=== PATIENT | male | born 1955 | race Caucasian/White ===

== ENCOUNTER 2017-05-04 18:39 | Emergency (ER) | payer BC ==
[~2017-05-04] VITALS: Ht 180.3 cm; Wt 103.1 kg
[2017-05-04 19:16] LABS: HEMATOCRIT 38.6 % (38.0-50.0); HEMOGLOBIN 13.4 G/DL (12.5-16.6); MCH 28.6 PG (29.0-34.0); MCHC 34.7 G/DL (30.0-36.0); MCV 82.3 FL (86-99); PLATELET COUNT 139 K/uL (156-360); RBC DIS.WIDTH-CV 13.9 % (11.8-14.6); RBC DIS.WIDTH-SD 41.1 % (39-53); RED BLOOD COUNT 4.69 M/uL (4.00-5.50); WHITE BLOOD COUNT 7.4 K/uL (4.1-10.2)
[2017-05-04 19:29] LABS: CHLORIDE 94 mEq/L (99-109); SODIUM 131 mEq/L (136-147)
[2017-05-04 19:30] LABS: GLUCOSE 204 mg/dL (70-99)
[2017-05-04 19:34] LABS: CREATININE 1.7 mg/dL (0.6-1.3); GFR ESTIMATE (CALCULATED) 43 mL/min/ (58.99-99999)
[2017-05-04 19:35] LABS: UREA NITROGEN (BUN) 26 mg/dL (9-23)
[2017-05-04 19:39] LABS: APPEARANCE SL.HAZY ((CLEAR)); BILIRUBIN NEGATIVE; BLOOD LARGE; COLOR YELLOW ((YELLOW)); GLUCOSE (STRIP) 50; KETONES NEGATIVE; LEUKOCYTES TRACE; NITRITE NEGATIVE; PROTEIN (STRIP) 100; SPECIFIC GRAVITY 1.017 (1.000-1.030); UROBILINOGEN 0.2 MG/DL (0.2-1.0)
[2017-05-04 19:56] LABS: BACTERIA NONE SEEN /HPF; EPITHELIAL CELLS RARE /HPF; HYALINE CASTS 20-30 /LPF; MUCUS TRACE /LPF; RED BLOOD CELLS TNTC /HPF (0-5); UCUL ADDED? YES; WHITE BLOOD CELLS 20-30 /HPF (0-5)
[2017-05-04] MEDS ORDERED: FLAGYL500 MG PO (21:46)
[2017-05-04] MEDS ORDERED: CIPRO500 MG PO (21:46)
[2017-05-04 22:18] VITALS: BP 154/91
== END 2017-05-04 22:20 | disposition home or self-care (01) ==
LOC: EME 18:39
DX: K52.9 Noninfective gastroenteritis and colitis, unspecified (principal); R31.9 Hematuria, unspecified; I10 Essential (primary) hypertension; E11.9 Type 2 diabetes mellitus without complications; Z88.5 Allergy status to narcotic agent
CPT/HCPCS: 71046; 74176; 80048; 81003; 85027; 87086; 99281; 99284; J1885

== ENCOUNTER 2017-07-09 10:27 | Day surgery (SDC) | payer BC ==
[~2017-07-09] VITALS: Ht 180.3 cm; Wt 99.8 kg
[~2017-07-09 10:27] MED LIST: CIPRO500 MG PO; FLAGYL500 MG PO; FLOMAX0.4 MG PO; HYZAAR 50-121 TABLET PO; METAGLIP 5/51 TABLET PO; NORMODYNE,TRAN300 MG PO; NORVASC10 MG PO; PROMETHAZINE HC25 M1 PO; PROTONIX40 MG PO; ROXICODONE5 MG PO; VICTOZA0.6 MG/0.1 SC; ZANAFLEX4 M1 PO; ZOCOR80 MG PO
[2017-07-09 11:01] VITALS: BP 140/83
[2017-07-09 14:33] VITALS: BP 168/82
[2017-07-09 15:33] VITALS: BP 174/90
[2017-07-09 17:55] VITALS: BP 172/90
[2017-07-09 19:20] VITALS: BP 173/90
== END 2017-07-09 19:30 | disposition home or self-care (01) ==
LOC: SDC
PROVIDERS: Urology
DX: R31.29 Other microscopic hematuria (principal); R82.8 Abnormal findings on cytological and histological examination of urine; N40.0 Benign prostatic hyperplasia without lower urinary tract symptoms; I12.9 Hypertensive chronic kidney disease with stage 1 through stage 4 chronic kidney disease, or unspecified chronic kidney disease; E11.22 Type 2 diabetes mellitus with diabetic chronic kidney disease; N18.3 Chronic kidney disease, stage 3 (moderate); Z79.84 Long term (current) use of oral hypoglycemic drugs; K21.9 Gastro-esophageal reflux disease without esophagitis; Z88.5 Allergy status to narcotic agent
CPT/HCPCS: 82948; 88108; 88305; 93005; C2625; J0690; J1170; J1815; J2250; J2405; J3010; J7040